=== PATIENT | male | born 1960 | race African-American/Black ===

== ENCOUNTER 2016-11-30 18:24 | Emergency (ER) | payer BC ==
[~2016-11-30] VITALS: Ht 182.9 cm; Wt 100.7 kg
[2016-11-30 18:28] VITALS: BP 147/82
[2016-11-30] MEDS ORDERED: Tetanus/Diptheria/Pertussis Vaccine 0.5ml Syr IM ONE (19:15)
[2016-11-30] MEDS ORDERED: Norco 5mg/325mg tab ORAL ONE (19:15)
[2016-11-30] MEDS ORDERED: Morphine Sulfate 4mg/ml Inj IVP ONE (21:00)
[2016-11-30] MEDS ORDERED: Bacitracin Oint UD TOPIC ONE (22:00)
[2016-11-30] MEDS ORDERED: ceFAZolin sod 1 GM in D5W 55 ML IVPB SCH (22:00)
[2016-11-30] MEDS ORDERED: Lidocaine 1% 10mg/ml/Epi 0.005mg/ml 30ml vial INJ ONE (22:00)
[2016-11-30] MEDS ORDERED: IBUPROFEN600 MG ORAL (22:37)
[2016-11-30] MEDS ORDERED: NORCO 5-325 TA1 EAC1 ORAL (22:37)
[2016-11-30] MEDS ORDERED: AUGMENTIN 875-1 EAC1 ORAL (22:37)
[2016-11-30 23:04] VITALS: BP 138/82
[2016-11-30 23:05] VITALS: BP 138/82
--- NOTE | 2016-12-01 11:04 | Diagnostic Imaging Report ---
Indication: PAIN Technique: 3 views left hand Comparison: None Findings: There is evidence of traumatic soft tissue and bony amputation of the second digit at the level of the distal interphalangeal joint. There are a few small bony fragments, which remnants of the distal phalanx; the middle phalangeal head appears to be intact. There is splaying of these fragments as well as of the soft tissue. No radiopaque foreign body. No other acute fractures or dislocations are demonstrated. An irregular calcification is seen within the soft tissues adjacent to the trapezium. There are degenerative changes of the first carpometacarpal joint. Impression: Positive for direct amputation of the second digit at the level of the distal interphalangeal joint, as described Other findings as noted
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
== END 2016-11-30 23:06 | disposition home or self-care (01) ==
LOC: EDBD 18:24 → EMR 19:10
DX: S68.121A Partial traumatic metacarpophalangeal amputation of left index finger, initial encounter (principal); W34.00XA Accidental discharge from unspecified firearms or gun, initial encounter; Y92.89 Other specified places as the place of occurrence of the external cause; Z23 Encounter for immunization
CPT/HCPCS: 73130; 90471; 90715; 96360; 96372; 96374; 96375; 99284; J2270; J2405